=== PATIENT | male | born 1955 | race Caucasian/White ===

== ENCOUNTER 2016-05-18 23:30 | Emergency (ER) | payer MEDICARE, BC ==
--- OUTSIDE RECORDS SUMMARY | 2016-05-19 00:31 | XMS REPORT | Continuity of Care Document ---
:1955 Author Organization [facility] ([facility]) [place] [address] Phone [phone] Care Team Providers Name Role Phone Jean Freed Primary Care Provider [phone] Source Comments This disclosure is being made pursuant to the Care Everywhere program, applicable federal and state laws, and may not contain all informaitonavailable regarding this patient.[facility] ([facility]) Active Allergies and Adverse Reactions Allergen Noted Date Severity Reactions Comments Penicillins Urticaria (Hives) Current Medications Prescription Sig. Disp. Refills Start Date End Date Status furosemide 40 mg Take 40 mg by Active tablet mouth daily ergocalciferol Take 50,000 Units Active (VITAMIN D2) 50,000 by mouth every unit capsule week albuterol 90 Use 2 Puffs by Active mcg/Actuation inhaler inhalation every 6 hours as needed for Wheezing levalbuterol (XOPENEX Use 1 Puff by Active HFA) 45 mcg/Actuation inhalation every inhaler 4 hours as needed aspirin 325 mg tablet Take 325 mg by Active mouth daily atorvastatin 10 mg Take 1 tablet (10 30 tablet 3 01/19/2015 Active tablet mg total) by mouth every evening potassium chloride 20 04/23/2015 Active mEq tablet metoPROLol tartrate Take 150 mg in 225 tablet 3 08/20/2015 Active 100 mg tablet AM, 100 mg in PM. lisinopril 5 mg tablet Take 1 tablet (5 90 tablet 3 08/20/2015 Active mg total) by mouth daily. amiodarone 200 mg Take 1 tablet 90 tablet 1 02/15/2016 Active tablet (200 mg total) by mouth daily. Active Problems Patient Care Coordination Note GOALS OF CARE AND TREATMENT PREFERENCES Patients Communication Style/Preference per patient: open/direct/ straightforward Diagnosis: Appropriate ICD firing Prognosis: guarded Goal(s) of Care: determine what is wrong Is the patient an inpatient? Yes. How did the team arrive at the current code status? patient Code status is: Full code Patient able to make own decisions?: Yes Patient's Goals of Care and communication style preference were communicated to attending staff. Problem Noted Date ICD (implantable cardioverter-defibrillator), dual, in situ, 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 CARDIOVASCULAR PROCEDURES ECHO/MUGA: Echo (EF.50, Mild TR, Mild MR, Mild LVH, No Pulmonary HTN) - 05/09/2011 Echo (The left ventricle is mildly dilated. Left ventricular systolic function is moderately reduced. Ejection Fraction=30%. There is moderate global hypokinesis of the left ventricle. There is a pace maker lead in the right ventricle. The left atrium is moderate to severely dilated. There is mild mitral regurgitation. There is mild to moderate tricuspid regurgitation. Right ventricular systolic pressure is elevated at 30- 40mmHg. ) - 08/02/2012 Echo:Upper limit of normal left ventricular size. Mild left ventricular hypertrophy.LV endocardial borders are poorly seen. Ultrasound contrast agent required for visualization. Normal left ventricular systolic function 08/2014 ELECTROPHYSIOLOGY: Devices (Single lead ICD placement.) - 07/18/2002 Devices (Generator Replacement, Single Chamber ICD ([place])) - 11/08/2011 STRESS TESTS: Jaime MPI (Normal EF, Large Transmural Inferior Scar) - 05/09/2011 Compulsive tobacco user syndrome 05/26/2014 Myocardial infarction, old Resolved Problems Problem Noted Date Resolved Date Leucopenia 09/19/2014 09/22/2014 Cough 09/18/2014 09/22/2014 Pyrexia 09/18/2014 09/22/2014 ICD (implantable cardioverter-defibrillator) discharge 09/18/2014 01/04/2016 Immunizations Name Dates Previously Given Next Due Influenza, unspecified 01/09/2005 Pneumococcal, unspecified 01/09/2005 Social History Tobacco Use Types Packs/Day Years Used Date Current Every Day Smoker Cigarettes 1 38 Smokeless Tobacco: Never Used Tobacco Cessation:Ready to Quit: No Comments: Alcohol Use Drinks/Week oz/Week Comments No 0 Standard drinks or equivalent 0.0 Recovering alcoholic, 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 Last Filed Vital Signs Vital Sign Reading Time Taken Blood Pressure 88/46 01/04/2016 3:36 PM CDT Pulse 54 01/04/2016 3:36 PM CDT Temperature 36.7 C (98.1 F) 09/22/2014 8:47 AM CDT Respiratory Rate 18 09/21/2014 11:06 PM CDT Height 1.778 m (5' 10") 01/04/2016 3:36 PM CDT Weight 101.061 kg (222 lb 12.8 oz) 01/04/2016 3:36 PM CDT Body Mass Index 31.97 01/04/2016 3:36 PM CDT Oxygen Saturation 95% 09/22/2014 10:32 AM CDT Plan of Care Date Type Specialty Providers Description 06/15/2016 Appointment Heart and Vascular FrankyVianney MD Chief Comp: Patient [address] [place] [address] Visit [phone] (Fax) Health Maintenance Due Date Last Done Comments HCV Screening 1955 Hepatitis B Vaccine (1 of 3 - Primary Series) 1955 Tdap Vaccine 1968 MMR Vaccine 09/26/1975 Td Vaccine 09/26/1975 Pneumococcal Vaccine (1 of 1 - PPSV23) 1976 Colonoscopy 2007 Prostate Cancer Screening 09/26/2007 Influenza Vaccine: Seasonal (#1) 10/18/2015 01/09/2005 Lipid Disorder Screening 09/19/2019 09/18/2014 Results from Last 3 Months Not on file
[2016-05-19 00:34] LABS: Hematocrit 44.8 % (42.0-52.0); Hemoglobin 15.1 gm/dL (13.5-18.0); Mean Cell Volume 92.4 fl (78-100); Mean Corpuscular Hemoglobin 31.1 pg (27-31); Mean Corpuscular Hgb Conc 33.7 g/dl (32-36); Mean Platelet Volume 8.9 fl (6.0-9.5); Neutrophil # 3.8 K/mm3 (1.3-6.0); Neutrophil % 46.4 % (42-75.0); Platelet Count 155 K/mm3 (150-450); Red Blood Count 4.85 M/mm3 (4.7-6.0); Red Cell Distribution Width 12.6 % (11.5-14.0); White Blood Count 8.1 K/mm3 (4.0-10.5)
--- NOTE | 2016-05-19 00:38 | ERNOTE ---
Chest Pain/Cardiac HPI Date of Service: 05/19/16 Chief Complaint: Palpitations Time Seen by Provider: 05/18/16 23:37 Source: patient - Exam Limitations: other - PT IS A & O BUT A VERY POOR HISTORIAN WHO CAN NOT EXPLAIN THE REASONS FOR HIS AICD. Immunizations: IMMUNIZATION HX Immunizations Up to Date Yes History of Influenza Vaccine Yes Hx Pneumococcal Vaccination No Allergies/Adverse Reactions: Allergies Penicillins Allergy (Verified 11/10/15 22:55) Home Medications: HOME MEDICATIONS Aspirin 325 mg PO DAILY 07/01/12 [Last Taken Unknown] Atorvastatin Calcium 10 mg PO HS 07/01/12 [Last Taken Unknown] Furosemide [Lasix] 40 mg PO DAILY 07/01/12 [Last Taken Unknown] Metoprolol Tartrate [Lopressor] 100 mg PO BID 07/01/12 [Last Taken Unknown] Potassium Chloride 20 meq PO DAILY 07/01/12 [Last Taken Unknown] Amiodarone HCl [Cordarone] 200 mg PO DAILY 01/10/15 [Last Taken Unknown] Lisinopril [Zestril] 5 mg PO DAILY 04/01/15 [Last Taken Unknown] Atorvastatin Calcium 80 mg PO HS 11/10/15 [Last Taken Unknown] Ergocalciferol (Vitamin D2) [Vitamin D2] 50,000 units PO DAILY 11/10/15 [Last Taken Unknown] Narrative: PT HAS C.C. 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 HE SAYS HE HAS HAD THIS BEFORE , SEVERAL TIMES. HE DENIES CHEST PAIN OR SOB. HE DENIES DE-FIBRILLATOR FIRING. STATES HE HAS HAD NO CHANGES IN HIS MEDS FOR YEARS. 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 HE STILL SMOKES, KNOWING HE SHOULD NOT, AND DRINKS A "POT TO A POT AND A HALF" OF COFFEE, CAFFEINATED, EVERY DAY. HE SAYS THIS IS 10-12 CUPS A DAY. HE DENIES EVER BEING TOLD THAT HE SHOULD NOT . STATES NO ALCOHOL FOR 23 YEARS. Timing: resolved prior to arrival Severity/Quality: mild - FLUTTERING Prior Chest Pain/Cardiac Workup: Reports: heart attack Review of Systems - Review of Systems Constitutional: Present: See HPI Respiratory: Present: no symptoms reported Cardiology: Present: See HPI, palpitations. Absent: chest pain Gastrointestinal/Abdominal: Present: no symptoms reported Musculoskeletal: Present: no symptoms reported Skin: Present: no symptoms reported Neurological: Present: no symptoms reported Endocrine: Present: no symptoms reported Hematologic/Lymphatic: Present: no symptoms reported Psych: Present: no symptoms reported All Other Systems: All systems neg except as marked - Patient's Past Medical History Patient History - Medical: No pertinent hx, Alcohol Abuse Patient History - Cardiac/Respiratory: Arrhythmias, Coronary Heart Disease, COPD , Hyperlipidemia, Myocardial Infarction, Other Patient History - Cancer: No Hx of Cancer Patient History - Surgical Procedures: Cardiac stent, Pacemaker, Other Patient History - Other: None - Family History Father Family History - Cardiac/Respiratory: Coronary Heart Disease Mother Family History - Cardiac/Respiratory: COPD - Social History Living Situations: alone Abuse History: No History of abuse Psych History: No pertinent hx Smoking Status: Current every day smoker Have you smoked in the past 12 months: Yes Do you dip or chew tobacco: No Alcohol Use: sober Drug Use: none - Immunizations Immunizations Up to Date: Yes Hx Pneumococcal Vaccination: No History of Influenza Vaccine: Yes Physical Exam - Physical Exam General Appearance: Present: wd/wn, alert, no apparent distress - OBESE MAN, A & O , SMELLS HEAVILY OF TOBACCO, WITH NAD. Respiratory: Present: no respiratory distress, normal breath sounds, no accessory muscle use, chest nontender, lungs clear Cardiovascular/Chest: Present: regular rate, rhythm, no murmur, normal peripheral pulses Gastrointestinal/Abdominal: Present: normal bowel sounds, nontender, nondistended, soft, no organomegaly Back Exam: Present: normal inspection, normal range of motion, no CVA tenderness , no vertebral tenderness Extremity Exam: Present: normal inspection, non-tender, normal range of motion, pedal edema - MINIMAL , HE STATES = NO CHANGE. Neurological Exam: Present: alert, oriented, normal mood/affect, no motor/ sensory deficits Skin Exam: Present: normal color, warm/dry ED Progress - Date and Time Seen: Date and Time: 05/19/16 01:09 WHILE HERE IN THE ER HE HAS NO SIGN OF ANY RHYTHM CHANGE FROM HIS SINUS BRADYCARDIA. - Results and Orders Patient's Lab Results:: I have reviewed the patient's lab results. Results and Orders: ALL NORMAL - Vital Signs Vital Signs: Vital Signs 05/18/16 05/18/16 23:30 23:44 Temperature 36.4 C L Pulse Rate 53 L 53 L Respiratory 20 Rate Blood Pressure 130/68 O2 Sat by Pulse 96 Oximetry - EKG EKG: other - SINUS ELLEN CARDIA , HR = 50 , WITH OLD Q IN 2,3, AVF UNCHANGED FROM 11/16/2015. NO SIGN OF ANY PACER SPIKES. EKG read: Interp. by me - Progress/Reassessment Chief Complaint: Palpitations Plan - Plan Plan: DISCHARGE HOME TO FOLLOW UP WITH PCP IN THE CLINIC TO DISCUSS IF HE NEED PACER INTEROGATED. HE SHOULD ALSO DIMINISH HIS CAFFEINE INTAKE AND STOP SMOKING. Departure - Departure Clinical Impression: Intermittent palpitations Disposition: Home Follow Up Needed Instructions: Heartbeats (How the Heart Works) Additional Instructions: FOLLOW UP WITH YOUR DR LATER TODAY. LET HIM KNOW YOU WERE HERE AND MAKE ARRANGEMENTS TO FOLLOW UP WITH HIM . YOU NEED TO STOP SMOKING AND DECREASE , GRADUALLY , YOUR CAFFEINE INTAKE. DISCUSS WITH YOUR DOCTOR IF YOU NEED ANY MEDICATION ADJUSTMENT. Referrals: Jean Mckeon MD [Primary Care Provider] -
[2016-05-19 00:46] LABS: ALT 52 U/L (19-67); AST 26 U/L (0-48); Albumin * 3.5 gm/dl (3.4-5.0); Alkaline Phosphatase * 87 U/L (50-170); Anion Gap 11.4 mmol/L (6.8-13.8); BUN/Creatinine Ratio 17.5 (9.0-21.6); Bilirubin, Total 0.5 mg/dL (0.0-1.1); Blood Urea Nitrogen 21 mg/dL (6-23); Ca. Corrected For Albumin 8.6 mg/dL (8.4-10.2); Calcium * 8.5 mg/dL (7.9-10.9); Carbon Dioxide 29.3 mmol/L (24-32.6); Chloride 104 mmol/L (97-106); Glucose * 132 mg/dL (70-110); Potassium 3.7 mmol/L (3.4-4.6); Sodium 141 mmol/L (132-142); Total Protein 7.1 gm/dL (6.2-8.2)
[2016-05-19 00:47] LABS: Troponin I Less than 0.017 ng/ml (0.00-0.10)
[2016-05-19 01:33] VITALS: BP 118/50
== END 2016-05-19 01:32 | disposition home or self-care (01) ==
LOC: ER 23:30
DX: R00.2 Palpitations (principal); Z72.0 Tobacco use